=== PATIENT | male | born 1945 | race Caucasian/White ===

== ENCOUNTER 2022-09-09 11:47 | Day surgery (SDC) | payer MEDICARE ==
[2022-09-05 09:15] LABS: BASOPHILS % (AUTO) 0.6 % (0-1); EOSINOPHILS # (AUTO) 0.1 X10'3 (0-0.9); EOSINOPHILS % (AUTO) 1.3 % (0-6); HEMATOCRIT 41.1 % (42.0-52.0); HEMOGLOBIN 13.8 g/dl (14.0-17.9); LYMPHOCYTES # (AUTO) 1.1 X10'3 (1.1-4.8); LYMPHOCYTES % (AUTO) 21.8 % (21-51); MEAN CORPUSCULAR HEMOGLOBIN 31.2 PG (27.0-31.0); MEAN CORPUSCULAR HGB CONC 33.6 g/dL (33.0-36.5); MEAN CORPUSCULAR VOLUME 92.9 FL (78-98); MEAN PLATELET VOLUME 8.7 FL (7.4-10.4); MONOCYTES # (AUTO) 0.4 X10'3 (0-0.9); MONOCYTES % (AUTO) 7.6 % (2-12); NEUTROPHILS # (AUTO) 3.4 X10'3 (1.8-7.7); NEUTROPHILS % (AUTO) 68.7 % (42-75); PLATELET COUNT 208 X10'3 (140-440); RED BLOOD COUNT 4.43 X10'6 (4.70-6.10); RED CELL DISTRIBUTION WIDTH 13.2 % (11.5-14.5); WHITE BLOOD COUNT 4.9 X10'3 (4.5-11.0)
[2022-09-05 09:33] LABS: ALBUMIN 3.8 G/DL (3.4-5.0); ANION GAP 7 (8-16); BLOOD UREA NITROGEN 19 MG/DL (7-18); CALCIUM 9.3 MG/DL (8.5-10.1); CHLORIDE 104 MMOL/L (99-107); CHOL/HDL RATIO 3.5 (0.00-4.99); CHOLESTEROL 194 MG/DL (0-200); CREATININE 1.27 MG/DL (0.60-1.10); GLUCOSE 120 MG/DL (70-104); HDL CHOLESTEROL 56 MG/DL (35-60); LDL CHOLESTEROL 124 MG/DL (50-100); POTASSIUM 4.8 MMOL/L (3.5-5.1); SODIUM 139 MMOL/L (135-145); TOTAL CARBON DIOXIDE 28.1 MMOL/L (24-32); TRIGLYCERIDES 73 MG/DL (20-135); eGFR 55 ML/MIN
[2022-09-05 11:22] LABS: APTT 27 SECONDS (22-32)
[2022-09-09] VITALS (10 sets, daily range): BP systolic 112–166; BP diastolic 61–92
[~2022-09-09] VITALS: Ht 185.4 cm; Wt 105.1 kg
[~2022-09-09 11:47] MED LIST: ACET-2615 PO; DIGO250T PO; FLEC100T2 PO; FURO-149 PO; LIDOcaine 1% (10mg/ml) 2ml vial ONE; LISI10TA27 PO; METO50TA17 PO; MULT-1085 PO; PRIM250T8 PO; RIVA20TA PO; fentaNYL/PF 50MCG/1 ML 2ML syringe ONE; heparin 1,000unit/ml 10ml vial 10 ML ONE; iohexol 350MG/ML 100ml bottle IV ONE; midazolam 1 mg/ML 2ml injection ONE; nitroGLYCERIN-Tridil 50MG/D5W 250 ML IV ONE; verapamil 2.5 mg/ml inj IV ONE
[2022-09-09] MEDS ORDERED: POTA99CA PO (12:14)
[2022-09-09] MEDS ORDERED: LISI20TA28 PO (12:14)
[2022-09-09] MEDS ORDERED: CHOL50CA2 PO (12:14)
[2022-09-09] MEDS ORDERED: ASPI81TA52 PO (12:14)
[2022-09-09] MEDS ORDERED: LORazepam 0.5 MG tablet PO PRN (12:15)
[2022-09-09] MEDS ORDERED: diphenhydrAMINE 25mg capsule PO PRN (12:15)
[2022-09-09] MEDS ORDERED: normal saline 1,000 ML IV SCH (12:15)
[2022-09-09 14:23] LABS: ISTAT HGB ART 12.6 g/dl (14.0-17.9); ISTAT Hct ART 37 %PCV (42-52); ISTAT Hct MIX 39 %PCV (42-52); ISTAT O2 SATURATION ARTERIAL 95 % (95-98); ISTAT O2 SATURATION MIX VENOUS 69 % (60-80); ISTAT SOURCE BLNK; ISTAT SOURCE VEN
[2022-09-09] MEDS ORDERED: HYDROcodone/acetaminophen 5mg/325mg tablet PO PRN (15:10)
[2022-09-09] MEDS ORDERED: ondansetron/PF 4mg/2ml inj IV PRN (15:10)
[2022-09-09] MEDS ORDERED: HYDROcodone/acetaminophen 10/325mg tab PO PRN (15:10)
[2022-09-09] MEDS ORDERED: proCHLORperazine 10 MG/2 ml inj IV PRN (15:15)
== END 2022-09-09 16:40 | disposition home or self-care (01) ==
LOC: SSTAY O 11:47
PROVIDERS: ATTEND Student in an Organized Health Care Education/Training Program
DX: I08.0 Rheumatic disorders of both mitral and aortic valves (principal); I25.10 Atherosclerotic heart disease of native coronary artery without angina pectoris; E78.5 Hyperlipidemia, unspecified; I48.91 Unspecified atrial fibrillation; I11.0 Hypertensive heart disease with heart failure; I50.9 Heart failure, unspecified; I49.5 Sick sinus syndrome; I42.0 Dilated cardiomyopathy; I48.92 Unspecified atrial flutter; Z95.0 Presence of cardiac pacemaker; Z95.2 Presence of prosthetic heart valve; Z79.82 Long term (current) use of aspirin; Z79.899 Other long term (current) drug therapy
CPT/HCPCS: 36415; 80048; 80061; 82803; 85014; 85025; 85610; 85730; 93005; 93460; 99152; 99153; C1769; C1894; J1644; J2250; J3010; J3490; J7030; Q9967; A6258; A6402; C1751

== ENCOUNTER 2024-11-01 09:30 | Day surgery (SDC) | payer MEDICARE ==
[2024-11-01] VITALS (8 sets, daily range): BP systolic 108–156; BP diastolic 67–82; PULSE 58–67; RESP 14–16; TEMP 98.2; O2SAT 93–99
[~2024-11-01] VITALS: Ht 185.4 cm; Wt 100.2 kg
[~2024-11-01 09:30] MED LIST changes: -ACET-2615 PO; +ASPI81TA52 PO; +CHOL50CA2 PO; -DIGO250T PO; -FLEC100T2 PO; -FURO-149 PO; -LIDOcaine 1% (10mg/ml) 2ml vial ONE; -LISI10TA27 PO; +LISI20TA28 PO; -METO50TA17 PO; +POTA99CA PO; -RIVA20TA PO; -fentaNYL/PF 50MCG/1 ML 2ML syringe ONE; -heparin 1,000unit/ml 10ml vial 10 ML ONE; -iohexol 350MG/ML 100ml bottle IV ONE; -midazolam 1 mg/ML 2ml injection ONE; -nitroGLYCERIN-Tridil 50MG/D5W 250 ML IV ONE; -verapamil 2.5 mg/ml inj IV ONE
[2024-11-01] MEDS ORDERED: CALC500T63 PO (10:06)
--- NOTE | 2024-11-01 10:34 | ELECTROCARDIOGRAPH REPORT ---
[facility] Test Date: 2024-11-01 Test Time: 10:31:58 Pat Name: JC KLEIN Department: [facility] Patient ID: [facility]-[id number] Room: Gender: M [employer]: : 1945 Requested By: DAPHNEY COFFEY Order Number: [id number] Reading MD: Dr. SID Olivares Measurements Intervals [place] Rate: 64 P: 0 NH: 68 QRS: 67 QRSD: 116 T: -37 QT: 424 QTc: 438 Interpretive Statements Ventricular-paced complexes No further rhythm analysis attempted due to paced rhythm Incomplete right bundle branch block Low voltage, extremity leads Anteroseptal infarct, old Electronically Signed On 11-02-2024 16:35:[address] SID Olivares Please click the below link to view image of tracing.
[2024-11-01] MEDS ORDERED: verapamil 2.5 mg/ml inj IV ONE (12:00)
[2024-11-01] MEDS ORDERED: LIDOcaine 1% (10mg/ml) 2ml vial ONE (12:00)
[2024-11-01] MEDS ORDERED: fentaNYL/PF 50MCG/1 ML 2ML syringe ONE (12:01)
[2024-11-01] MEDS ORDERED: heparin 1,000unit/ml 10ml vial 10 ML ONE (12:01)
[2024-11-01] MEDS ORDERED: midazolam 1 mg/ML 2ml injection ONE (12:01)
[2024-11-01] MEDS ORDERED: nitroGLYCERIN 500mcg/5mL D5W 5 ML IV ONE (12:12)
[2024-11-01 13:26] LABS: ISTAT HGB ART 12.2 g/dl (14.0-17.9); ISTAT Hct ART 36 %PCV (42-52); ISTAT O2 SATURATION ARTERIAL 94 % (95-98); ISTAT SOURCE ART
[2024-11-01] MEDS ORDERED: HYDROcodone/acetaminophen 5mg/325mg tablet PO PRN (14:40)
[2024-11-01] MEDS ORDERED: HYDROcodone/acetaminophen 10/325mg tab PO PRN (14:40)
--- NOTE | 2024-11-01 15:30 | CARDIAC CATH REPORT ---
Cardiac Cath Report Providers to CC CC: INDIGO COFFEY MD Procedure Comments: 1. Right Heart Catheterization 2. Left Heart Catheterization 3. Right Brachial vein access 4. Right Radial artery access Brief History/Indications: 79yo man with HTN, HLD, SSS(s/p PPM, SKINNY Clip), MS(s/p MVR 2015), Severe symptomatic aortic stenosis referred for evaluation prior to consideration of AVR. Techniques: After informed consent was obtained, the patient was brought to the cardiac catheterization laboratory and prepped and draped in usual sterile fashion for left heart catheterization and other procedures mentioned above. The right wrist and right AC fossa were anesthetized with 1% Lidocaine. The right AC IV was exchanged over a wire for an 6fr sheath. The right radial artery accessed via the Seldinger technique after which a 6Fr sheath was placed. The [place] was advanced via the right AC sheath to the right atrium, the right ventricle, the pulmonary artery, and wedge position. Through the 6Fr right radial sheath, a TIG was used to engage the left coronary artery, and a JR 3.5 to engage the right coronary artery and left ventricle. At the conclusion of the case the sheath was removed and hemostasis obtained with a VascBand for the radial sheath and manual compression for the brachial sheath. Findings Findings: HEMODYNAMICS: RA: 6 mmHg RV: 29/-, RVEDP 3 mmHg PA: 28/7, mPAP 16 mmHg PCWP: 8 mmHg(V-waves to 12mmHg) TP mmHg DP mmHg LV: 164/3 mmHg LVEDP: 18 mmHg Ao: 133/63, MAP 91 mmHg HR: 72bpm PA Sat: 67% Ao Sat: 94% CO/CI (Priscila): 5.53/2.47 PVR: 1.5 [place] CORONARY ARTERIES: Rt Dominant LMCA: Luminal Irregularities LAD: Prox 20% stenosis, mid 40-50% stenosis Dx: Luminal Irregularities LCx: Luminal Irregularities OM1: Small OM2: Luminal Irregularities RCA: Luminal Irregularities PDA: Luminal Irregularities PL: Luminal Irregularities Results Results: 1. No significant obstructive CAD 2. RRA and RBV access, closed with VascBand and manual compression RECOMMENDATIONS: 1. Agree with referral to [facility] TAVR clinic for evaluation of severe, symptomatic aortic stenosis. DAPHNEY COFFEY MD Nov 01, 2024 15:30
[2024-11-02 15:02] LABS: ISTAT HGB MIX 12.2 g/dl (14.0-17.9); ISTAT Hct MIX 36 %PCV (42-52); ISTAT O2 SATURATION MIX VENOUS 67 % (60-80); ISTAT SOURCE VEN
== END 2024-11-01 16:00 | disposition home or self-care (01) ==
LOC: SSTAY O 09:30
PROVIDERS: ATTEND Student in an Organized Health Care Education/Training Program
DX: I35.0 Nonrheumatic aortic (valve) stenosis (principal); I25.10 Atherosclerotic heart disease of native coronary artery without angina pectoris; I49.5 Sick sinus syndrome; I10 Essential (primary) hypertension; E78.5 Hyperlipidemia, unspecified; I45.10 Unspecified right bundle-branch block; Z95.0 Presence of cardiac pacemaker
CPT/HCPCS: 82803; 85014; 93005; 93460; 99152; 99153; A6258; A6402; C1751; C1769; C1894; J1644; J2003; J2250; J3010; J3490; J7030; Q0163; Q9967; Z7610; A6449